=== PATIENT | female | born 1955 | race American Indian/Alaskan Native ===

== ENCOUNTER 2017-01-02 09:05 | Emergency (ER) | payer SELFPAY ==
[2017-01-02 10:01] VITALS: BP 141/89
[2017-01-02 10:31] LABS: Basophils % (Auto) 0.7 % (0.0-1.8); Eosinophils % (Auto) 4.5 % (0.0-4.3); Hematocrit 33.4 % (30.3-42.9); Mean Corpuscular HGB Conc 33 % (30-34); Mean Corpuscular Hemoglobin 35 pg (28-32); Mean Corpuscular Volume 107 fl (79-97); Red Blood Count 3.12 M/mm3 (3.65-5.03); White Blood Count 6.1 K/mm3 (4.5-11.0)
[2017-01-02 11:00] LABS: Blood Urea Nitrogen 10 mg/dL (7-17); Calcium 9.2 mg/dL (8.4-10.2); Carbon Dioxide 27 mmol/L (22-30); Chloride 97.2 mmol/L (98-107); Glucose 103 mg/dL (65-100); Sodium 138 mmol/L (137-145)
[2017-01-02 11:12] LABS: Bacteria,Urine 1+ /HPF (Negative); Bilirubin,Urine SM (Negative); Blood,Urine NEG (Negative); Ketones,Urine NEG (Negative); Leukocyte Esterase,Urine SM (Negative); Mucus,Urine FEW /HPF; Nitrite,Urine NEG (Negative)
[2017-01-02 12:13] LABS: Anion Gap 17 mmol/L; Potassium 2.8 mmol/L (3.6-5.0)
[2017-01-02 12:37] LABS: Platelet Count 51 K/mm3 (140-440)
--- NOTE | 2017-01-04 01:10 | ED Elopement Review ---
ED Pt Elopement review - Results review Lab results: Laboratory Tests 01/02/17 01/02/17 01/02/17 09:25 09:25 10:37 WBC 6.1 RBC 3.12 L Hgb 11.0 Hct 33.4 MCV 107 H MCH 35 H MCHC 33 RDW 13.0 L Plt Count 51 L Lymph % (Auto) 23.6 Jackson % (Auto) 14.2 H Eos % (Auto) 4.5 H Baso % (Auto) 0.7 Lymph # 1.4 Jackson # 0.9 H Eos # 0.3 Baso # 0.0 Seg Neutrophils % 57.0 Seg Neutrophils # 3.5 Sodium 138 Potassium 2.8 L* Chloride 97.2 L Carbon Dioxide 27 Anion Gap 17 BUN 10 Creatinine 0.5 L Estimated GFR > 60 BUN/Creatinine Ratio 20.00 Glucose 103 H Calcium 9.2 Urine Color [place] Urine Turbidity Clear Urine pH 7.0 Ur Specific [place] 1.024 Urine Protein 100 mg/dl Urine Glucose (UA) Neg Urine Ketones Neg Urine Blood Neg Urine Nitrite Neg Urine Bilirubin Sm Urine Ictotest Negative Urine Urobilinogen 4.0 Ur Leukocyte Esterase Sm Urine WBC (Auto) 5.0 Urine RBC (Auto) 10.0 U Epithel Cells (Auto) 3.0 Urine Bacteria (Auto) 1+ Urine Mucus Few - Call Back decision Pt Call Back Decision: Call pt to return to ED [facility] (hypokalemia of 2.8 with diarrhea should be addressed. Patient has a primary physician that she'll follow up with them otherwise return to the ED)
== END 2017-01-02 14:41 | disposition left against medical advice (07) ==
LOC: ED 09:05
DX: R11.2 Nausea with vomiting, unspecified (principal); R19.7 Diarrhea, unspecified; Z53.21 Procedure and treatment not carried out due to patient leaving prior to being seen by health care provider
CPT/HCPCS: 36415; 80048; 81001; 85025

== ENCOUNTER 2017-01-16 13:32 | Emergency (ER) | payer SELFPAY ==
[2017-01-16 14:33] VITALS: BP 113/77
[2017-01-16 15:27] LABS: Hematocrit 34.2 % (30.3-42.9); Hemoglobin 11.4 gm/dl (10.1-14.3); Mean Corpuscular HGB Conc 33 % (30-34); Mean Corpuscular Hemoglobin 36 pg (28-32); Mean Corpuscular Volume 108 fl (79-97); Platelet Count 130 K/mm3 (140-440); Red Blood Count 3.18 M/mm3 (3.65-5.03); Red Cell Distribution Width 12.8 % (13.2-15.2); White Blood Count 5.4 K/mm3 (4.5-11.0)
[2017-01-16 15:37] LABS: Alanine Aminotransferase 43 units/L (7-56); Albumin 3.6 g/dL (3.9-5); Albumin/Globulin Ratio 0.6 %; Alkaline Phosphatase 120 units/L (35-129); Anion Gap 17 mmol/L; Blood Urea Nitrogen 9 mg/dL (7-17); Carbon Dioxide 26 mmol/L (22-30); Chloride 99.1 mmol/L (98-107); Glucose 94 mg/dL (65-100); Potassium 4.3 mmol/L (3.6-5.0); Sodium 138 mmol/L (137-145); Total Protein 9.4 g/dL (6.3-8.2)
[2017-01-16 15:42] LABS: INR 1.22 (0.87-1.13); Partial Thromboplastin Time 37.1 Sec. (24.2-36.6)
[2017-01-16 16:09] LABS: Basophils % (Manual) 0 % (0.0-1.8); Blastocytes % (Manual) 0 %
[2017-01-16 16:10] LABS: Large Platelets 1+
[2017-01-16 16:11] LABS: Macrocytosis 1+; Poikilocytosis Rare
[2017-01-16 16:12] LABS: Diff Status Complete; Platelet Estimate Consistent w Auto
--- NOTE | 2017-01-16 16:52 | Emergency Department Report ---
HPI - General Chief Complaint: Eye Problems Time Seen by Provider: 01/16/17 16:48 - HPI HPI: This is a 61-year-old [facility] female presents to the emergency department with a one-month history of intermittent flashing of lights in her vision. She denies any headache, pain in the eyes. The patient has history of lupus and says that her doctor back in [place] start her on a medication for lupus at about the same time that the symptoms began. The medication is hydroxychloroquine. She otherwise denies any other past medical history. She denies any tobacco abuse or any illicit drug use. She has not taken anything for symptoms prior to presentation. She does not wear glasses or contacts. ED Past Medical Hx - Past Medical History Previous Medical History?: Yes Additional medical history: LUPUS - Surgical History Past Surgical History?: Yes Additional Surgical History: . HYSTERECTOMY - Social History Smoking Status: Never Smoker Substance Use Type: None ED Review of Systems ROS: Stated complaint: VISION ISSUE /BOTH EYES/ Other details as noted in HPI Comment: All other systems reviewed and negative Constitutional: denies: chills, fever Eyes: other (lights flashing in vision). denies: eye pain, eye discharge ENT: denies: ear pain, throat pain Respiratory: denies: cough, shortness of breath, wheezing Cardiovascular: denies: chest pain, palpitations Gastrointestinal: denies: abdominal pain, nausea, diarrhea Genitourinary: denies: urgency, dysuria, discharge Musculoskeletal: denies: back pain, joint swelling, arthralgia Skin: denies: rash, lesions Neurological: denies: headache, weakness, paresthesias Physical Exam - Physical Exam Vital Signs: Vital Signs 01/16/17 14:30 Temperature 98.1 F Pulse Rate 73 Respiratory 18 Rate Blood Pressure 113/77 O2 Sat by Pulse 100 Oximetry Physical Exam: GENERAL: The patient is well-developed well-nourished. HEENT: Normocephalic. Atraumatic. Extraocular motions are intact. Patient has moist mucous membranes. Pupils equal reactive to light bilaterally. No nystagmus. Visual acuity: 20/13 both eyes, 20/15 OD, 20/15 OS NECK: Supple. Trachea is midline. CHEST/LUNGS: Clear to auscultation. There is no respiratory distress noted. HEART/CARDIOVASCULAR: Regular. There is no tachycardia. There is no gallop rub or murmur. ABDOMEN: Abdomen is soft, nontender. Patient has normal bowel sounds. There is no abdominal distention. SKIN: Skin is warm and dry. NEURO: The patient is awake, alert, and oriented. The patient is cooperative. The patient has no focal neurologic deficits. The patient has normal speech and gait. Cranial nerves II through XII grossly intact. MUSCULOSKELETAL: There is no tenderness or deformity. There is no limitation range of motion. There is no evidence of acute injury. ED Course Vital Signs 01/16/17 14:30 Temperature 98.1 F Pulse Rate 73 Respiratory 18 Rate Blood Pressure 113/77 O2 Sat by Pulse 100 Oximetry ED Medical Decision Making - Lab Data Result diagrams: 01/16/17 15:02 01/16/17 15:02 - Radiology Data Radiology results: report reviewed CT of the head does not show any acute process including no hemorrhage, mass, shift, diffuse edema or skull fracture. - Medical Decision Making 61-year-old female presents with the complaint of occasional flashing lights in her vision. This occurs both in dark rooms and lit rooms. It occurs only intermittently. She denies any actual vision change and denies any headache or pain in the eyes. It started around the time the patient was started on hydroxychloroquine so this could be one source of her symptoms. This could be a ocular migraine. It is less likely to be a retinal issue as it occurs in lit rooms and bilaterally. However the patient appears safe for discharge home at this time. Vital signs stable throughout her ED course. She'll be given ophthalmology referrals and encouraged to return with any worsening or symptoms or any acute distress. - Differential Diagnosis ocular migraine, medication induced, retinal detachment Critical Care Time: No Critical care attestation.: If time is entered above; I have spent that time in minutes in the direct care of this critically ill patient, excluding procedure time. ED Disposition Clinical Impression: Flashing lights seen Disposition: DISCHARGED TO HOME OR SELFCARE Is pt being admited?: No Condition: Stable Instructions: Blurred Vision (ED) Additional Instructions: Please follow-up with an privacy analyst in the next few days if possible. Return to the ER with any worsening of your symptoms or any acute distress. Referrals: NAEEM RAMIREZ MD [Staff Physician] - 3-5 Days RUSS ROSA MD [Staff Physician] - 3-5 Days FREDI HERRERA MD [Staff Physician] - 3-5 Days EARNEST ARMSTRONG MD [Staff Physician] - 3-5 Days Time of Disposition: 17:25
--- NOTE | 2017-01-16 16:53 | Cat Scan Report ---
CT HEAD WITHOUT CONTRAST INDICATION: Vision changes, flashing in eyes. COMPARISON: None similar at this institution. FINDINGS: Noncontrast head CT demonstrates age-appropriate, symmetric ventricles and sulci without acute or recent infarct, hemorrhage, mass effect or midline shift. Mild periventricular hypodensities. No abnormal extra-axial fluid collections. Posterior fossa structures and basilar cisterns appear within normal limits. Symmetric eye globes. Clear paranasal sinuses and mastoid air cells. Intact calvarium. Normal overlying scalp soft tissues. Few radiopaque dental material incidentally noted. CONCLUSION: No acute intracranial CT abnormality, as described. Thank you for the opportunity to participate in this patient's care.
== END 2017-01-16 17:50 | disposition home or self-care (01) ==
LOC: ED 13:32
DX: H53.8 Other visual disturbances (principal); M32.9 Systemic lupus erythematosus, unspecified
CPT/HCPCS: 36415; 70450; 80053; 85007; 85025; 85610; 85730

== ENCOUNTER 2018-01-05 21:04 | Emergency (ER) | payer SELFPAY ==
[2018-01-05 21:20] VITALS: BP 144/90
[2018-01-05] MEDS ORDERED: NACL 0.9% 1000 ML 1,000 ML IV ONE (21:50)
[2018-01-05 22:14] LABS: Hematocrit 31.5 % (30.3-42.9); Hemoglobin 10.4 gm/dl (10.1-14.3); Mean Corpuscular Hemoglobin 36 pg (28-32); Mean Corpuscular Volume 107 fl (79-97); Red Blood Count 2.94 M/mm3 (3.65-5.03)
[2018-01-05 22:15] LABS: Basophils % (Auto) 1.1 % (0.0-1.8); Eosinophils % (Auto) 1.1 % (0.0-4.3); Lymphocytes # (Auto) 1.5 K/mm3 (1.2-5.4); Mean Corpuscular HGB Conc 33 % (30-34); Monocytes # (Auto) 0.4 K/mm3 (0.0-0.8); Monocytes % (Auto) 9.7 % (0.0-7.3); Red Cell Distribution Width 13.4 % (13.2-15.2)
[2018-01-05 22:24] LABS: INR 1.06 (0.87-1.13)
[2018-01-05 22:25] LABS: Partial Thromboplastin Time 38.3 Sec. (24.2-36.6); Platelet Count 70 K/mm3 (140-440)
[2018-01-05 22:34] LABS: Alanine Aminotransferase 36 units/L (7-56); Albumin 3.4 g/dL (3.9-5); Lipase 140 units/L (13-60)
[2018-01-05 22:43] LABS: BUN/Creatinine Ratio 28; Blood Urea Nitrogen 14 mg/dL (7-17); Calcium 8.8 mg/dL (8.4-10.2); Hemolysis Index 0
== END 2018-01-05 22:06 | disposition left against medical advice (07) ==
LOC: ED 21:04
DX: K62.5 Hemorrhage of anus and rectum (principal); Z53.21 Procedure and treatment not carried out due to patient leaving prior to being seen by health care provider
CPT/HCPCS: 36415; 80053; 83690; 85025; 85610; 85730; 86850; 86900; 86901